=== PATIENT | female | born 2005 | race African-American/Black ===

== ENCOUNTER 2024-06-05 13:32 | Emergency (ER) | payer OTHER, SELFPAY ==
[2024-06-05 13:42] VITALS: BP 121/64; PULSE 86; TEMP 36.9; O2SAT 100; BMI 19.6
[2024-06-05 13:55] VITALS: PULSE 86
--- NOTE | 2024-06-05 14:22 | ED.CHESTPAI1 ---
HPI - Chest Pain General Chief Complaint: Chest Pain Stated Complaint: CHEST PAIN Time Seen by Provider: 06/05/24 14:00 Source: patient Mode of arrival: walk-in Limitations: no limitations History of Present Illness HPI narrative: cc = chest pain Pt with pain across the upper chest that developed yesterday and continued today. She had URI 2 weeks ago and coughed for the last 2 weeks. She admits to some dyspepsia and has been taking a lot of ibuprofen . No recent injury. No fever. No other GI symptoms. Related Data Previous Rx's ?Medication ?Instructions ?Recorded azithromycin 250 mg tablet See Rx Instructions PO .COMPLEX #6 06/05/24 tabs methocarbamol 750 mg tablet 750 mg PO Q6H PRN pain #30 tabs 06/05/24 Allergies Allergy/AdvReac Type Severity Reaction Status Date / Time No Known Drug Allergies Allergy Verified 06/05/24 13:41 PFSH PFSH Social History Little interest or pleasure in doing things: not at all Feeling down, depressed, or hopeless: not at all Exam Narrative Exam Narrative: Nurses notes and vital signs reviewed and patient is not hypoxic. afebrile General: Well-appearing and in no apparent distress. Skin: Warm, dry, no pallor noted. No rash. Head: Normocephalic, atraumatic. Neck: Supple, non-tender. Eye: Pupils are equal, round and EOMI. No scleral icterus. Cardiovascular: Regular Rate and Rhythm without murmur, gallop or rub. Respiratory: No accessory muscle use or respiratory distress. Lungs are clear to auscultation, no wheezing, rales or rhonchi Chest Wall: Upper anterior chest wall tenderness, without crepitus or subcutaneous emphysema Musculoskeletal: normal ROM, no calf or popliteal tenderness, no lower extremity edema/swelling GI: Abdomen is soft, non-distended. Normal bowel sounds. No masses appreciated. No tenderness to palpation. No rebound, guarding, or rigidity noted. Neurological: A&O x4. No cranial nerve dysfunction observed. No truncal ataxia. Moves all extremities. Sensation intact. Psychiatric: Cooperative and interactive. Normal mood and affect. Constitutional Vital Signs, click to edit/add: Last Vital Signs Temp 98.4 F 06/05/24 13:42 Pulse 86 06/05/24 13:42 Resp 14 06/05/24 13:42 BP 121/64 06/05/24 13:42 Pulse Ox 100 06/05/24 13:42 Course Vital Signs Vital signs: Vital Signs Temperature 98.4 F 06/05/24 13:42 Pulse Rate 86 06/05/24 13:42 Respiratory Rate 14 06/05/24 13:42 Blood Pressure 121/64 06/05/24 13:42 Pulse Oximetry 100 06/05/24 13:42 Temperature 98.4 F 06/05/24 13:42 Pulse Rate 86 06/05/24 13:42 Respiratory Rate 14 06/05/24 13:42 Blood Pressure 121/64 06/05/24 13:42 Pulse Oximetry 100 06/05/24 13:42 MDM - Chest Pain MDM Narrative Medical decision making narrative: EKG is normal. She denied any chance of and chest x-ray was obtained. Imaging Data Chest x-ray: My impression: interstitial infiltrates Radiologist's impression: Bilateral mild interstitial infiltrates which could be inflammatory or infectious in origin ECG Data Attestation: I personally reviewed and interpreted this ECG as follows: Interpretation: EKG interpretation: Emergency Department physician interpretation. Normal sinus rhythm at 70bpm. Normal axis, normal intervals and no ST segment elevation or depression. Normal EKG Discharge Plan Discharge Chief Complaint: Chest Pain Clinical Impression: Acute chest wall pain, GERD (gastroesophageal reflux disease), Pleurisy Patient Disposition: Home, Self-Care Time of Disposition Decision: 15:08 Prescriptions / Home Meds: New azithromycin 250 mg tablet See Rx Instructions .ROUTE .COMPLEX Qty: 6 0RF Rx Instructions: For 250 mg dose pack: take 500 mg today (day 1), then 250 mg for 4 days (days 2-5) methocarbamol 750 mg tablet 750 mg PO Q6H PRN (Reason: pain) Qty: 30 0RF Print Language: Lithuanian Instructions: Pleurisy (ED), Chest Wall Pain (ED)
[2024-06-05 15:31] VITALS: BP 117/79; PULSE 74; O2SAT 100
--- NOTE | 2024-06-05 18:06 | ECG_ITS ---
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 Measurements Intervals [place] Rate: 70 P: 52 RI: 156 QRS: 84 QRSD: 72 T: 57 QT: 372 QTc: 393 Interpretive Statements 1100 Sinus rhythm 9110 normal ECG No previous ECG available for comparison Electronically Signed On 06-05-2024 20:40:20 EDT by FABIOLA PAREDES M.D.
== END 2024-06-05 15:34 | disposition home or self-care (01) ==
PROVIDERS: Emergency Provider Emergency Medicine
DX: R07.89 Other chest pain (principal); K21.9 Gastro-esophageal reflux disease without esophagitis; R09.1 Pleurisy
CPT/HCPCS: 71046; 93005; 99283